=== PATIENT | male | born 1980 | race Two or more races ===

== ENCOUNTER 2018-08-19 22:07 | Emergency (ER) | payer MEDICAID ==
[~2018-08-19] VITALS: Ht 177.8 cm; Wt 99.0 kg
[~2018-08-19 22:07] MED LIST: AMOX-419 PO; PANT40TA4 PO
[2018-08-19 22:08] VITALS: BP 139/97
== END 2018-08-20 00:14 | disposition home or self-care (01) ==
LOC: ER 22:07
DX: Z48.01 Encounter for change or removal of surgical wound dressing (principal); Z90.49 Acquired absence of other specified parts of digestive tract; Z98.890 Other specified postprocedural states; Z79.2 Long term (current) use of antibiotics; Z79.899 Other long term (current) drug therapy
CPT/HCPCS: 99282

== ENCOUNTER 2018-09-28 17:24 | Emergency (ER) | payer MEDICAID ==
[~2018-09-28] VITALS: Ht 175.3 cm; Wt 100.0 kg
[~2018-09-28 17:24] MED LIST changes: -AMOX-419 PO
[2018-09-28 17:48] VITALS: BP 118/78
[2018-09-28] MEDS ORDERED: LIDO700A32 TD (19:53)
[2018-09-28] MEDS ORDERED: HYDR-4353 PO (19:53)
== END 2018-09-28 20:07 | disposition home or self-care (01) ==
LOC: ER 17:25
DX: R07.81 Pleurodynia (principal); R07.89 Other chest pain; Z90.49 Acquired absence of other specified parts of digestive tract; Z98.890 Other specified postprocedural states; Z79.899 Other long term (current) drug therapy; W13.2XXA Fall from, out of or through roof, initial encounter; Y93.89 Activity, other specified; Y92.89 Other specified places as the place of occurrence of the external cause; Y99.8 Other external cause status
CPT/HCPCS: 71046; 99283

== ENCOUNTER 2019-02-19 02:36 | Emergency (ER) | payer MEDICAID ==
[~2019-02-19] VITALS: Ht 177.8 cm; Wt 95.2 kg
[~2019-02-19 02:36] MED LIST changes: +LIDO700A32 TD
[2019-02-19 02:43] VITALS: BP 123/73
--- NOTE | 2019-02-19 02:53 | NUR ---
PT IN ROOM WITH FATHER EARLIER THIS SHIFT FOR A COUPLE OF HRS. HAD NO COMPLAINTS AT THAT TIME. UPON ASSESSMENT, STATES HE WENT HOME AND DRANK. ALSO ADMITS TO [facility] A COUPLE OF DAYS
[2019-02-19] MEDS ORDERED: dexamethasone 4mg tablet PO ONE (03:30)
[2019-02-19] MEDS ORDERED: PRED20TA PO (03:30)
== END 2019-02-19 03:44 | disposition home or self-care (01) ==
LOC: ER 02:37
DX: R13.10 Dysphagia, unspecified (principal); K14.6 Glossodynia; Z79.899 Other long term (current) drug therapy; Z90.49 Acquired absence of other specified parts of digestive tract; Z98.890 Other specified postprocedural states
CPT/HCPCS: 99283; J8540

== ENCOUNTER 2019-07-09 16:11 | Emergency (ER) | payer MEDICAID ==
[~2019-07-09] VITALS: Ht 177.8 cm; Wt 100.0 kg
[2019-07-09] MEDS ORDERED: L. R1CAP4 PO (18:11)
[2019-07-09] MEDS ORDERED: CLIN150C2 PO (18:11)
[2019-07-09] MEDS ORDERED: CHLO473M3 PO ×2 (18:11→18:17)
[2019-07-09 18:31] VITALS: BP 132/64
== END 2019-07-09 18:30 | disposition home or self-care (01) ==
LOC: ER 16:11
DX: K02.9 Dental caries, unspecified (principal); Z90.49 Acquired absence of other specified parts of digestive tract; Z79.2 Long term (current) use of antibiotics; Z79.899 Other long term (current) drug therapy; Z98.890 Other specified postprocedural states
CPT/HCPCS: 99283

== ENCOUNTER 2021-01-05 20:46 | Emergency (ER) | payer MEDICAID ==
[~2021-01-05] VITALS: Ht 175.3 cm; Wt 100.0 kg
[~2021-01-05 20:46] MED LIST changes: +CHLO473M3 PO; +L. R1CAP4 PO; -PANT40TA4 PO; +PANT40TA54 PO
[2021-01-05 20:58] VITALS: BP 164/111
== END 2021-01-06 01:13 | disposition left against medical advice (07) ==
LOC: ER 20:47
DX: F15.129 Other stimulant abuse with intoxication, unspecified (principal); Z53.21 Procedure and treatment not carried out due to patient leaving prior to being seen by health care provider

== ENCOUNTER 2022-06-01 05:26 | Emergency (ER) | payer MEDICAID ==
[~2022-06-01] VITALS: Ht 177.8 cm; Wt 99.8 kg
--- NOTE | 2022-06-01 05:43 | NUR ---
DR MCDANIEL AWARE OF PT. HE WILL PUT IN ORDERS.
[2022-06-01] MEDS ORDERED: LORazepam 1 MG tablet PO PRN (06:05)
[2022-06-01] MEDS ORDERED: normal saline 1000ML IV soln IVB ONE (06:05)
[2022-06-01 06:17] LABS: BASOPHILS # (AUTO) 0.1 X10'3 (0-0.2); BASOPHILS % (AUTO) 1.2 % (0-1); EOSINOPHILS # (AUTO) 0.1 X10'3 (0-0.9); EOSINOPHILS % (AUTO) 0.9 % (0-6); HEMATOCRIT 41.1 % (42.0-52.0); HEMOGLOBIN 14.4 g/dl (14.0-17.9); LYMPHOCYTES # (AUTO) 1.6 X10'3 (1.1-4.8); LYMPHOCYTES % (AUTO) 26.1 % (21-51); MEAN CORPUSCULAR HEMOGLOBIN 32.6 PG (27.0-31.0); MEAN CORPUSCULAR HGB CONC 35.1 g/dL (33.0-36.5); MEAN CORPUSCULAR VOLUME 92.9 FL (78-98); MEAN PLATELET VOLUME 7.4 FL (7.4-10.4); MONOCYTES # (AUTO) 0.9 X10'3 (0-0.9); MONOCYTES % (AUTO) 14.3 % (2-12); NEUTROPHILS # (AUTO) 3.5 X10'3 (1.8-7.7); NEUTROPHILS % (AUTO) 57.5 % (42-75); PLATELET COUNT 114 X10'3 (140-440); RED BLOOD COUNT 4.42 X10'6 (4.70-6.10); RED CELL DISTRIBUTION WIDTH 14.5 % (11.5-14.5)
[2022-06-01 06:31] LABS: ALANINE AMINOTRANSFERASE 103 U/L (12-78); ALBUMIN 4.4 G/DL (3.4-5.0); ALBUMIN/GLOBULIN RATIO 1.2 (1.1-1.5); ALKALINE PHOSPHATASE 92 IU/L (46-116); ANION GAP 19 (8-16); ASPARTATE AMINO TRANSFERASE 75 U/L (10-37); BILIRUBIN,TOTAL 0.8 MG/DL (0.1-1.0); BLOOD UREA NITROGEN 4 MG/DL (7-18); BUN/CREATININE RATIO 4.3 (5.4-32.0); CALCIUM 9.1 MG/DL (8.5-10.1); CHLORIDE 95 MMOL/L (99-107); CREATININE 0.92 MG/DL (0.60-1.10); GLUCOSE 129 MG/DL (70-104); MAGNESIUM 1.3 MG/DL (1.5-2.4); SODIUM 135 MMOL/L (135-145); TOTAL CARBON DIOXIDE 21.3 MMOL/L (24-32); eGFR 90 ML/MIN
[2022-06-01 06:55] LABS: POTASSIUM 2.6 MMOL/L (3.5-5.1)
[2022-06-01] MEDS ORDERED: magnesium 2GM in 50ml NS 50 ML IV ONE (07:10)
[2022-06-01] MEDS ORDERED: potassium CL 10mEq/100ml bag 100 ML IV ONE (07:10)
[2022-06-01] MEDS ORDERED: MIDAZolam 5mg/ml 2ml vial IV ONE (07:10)
[2022-06-01 07:54] LABS: ETHANOL < 0.010 GM/DL (0.0-0.010)
[2022-06-01] MEDS ORDERED: POTASSIUM BICARB 20meq eff tab 20 MEQ TABLET.EFF PO STA (08:23)
--- NOTE | 2022-06-01 08:25 | NUR ---
received verbal order for effer-k 40meq potassium po from [facility]. order placed as received
--- NOTE | 2022-06-01 08:33 | NUR ---
received verbal orders for mag-oxide 400mg tab and one more potassium 10meq iv bag. orders placed as received
[2022-06-01] MEDS ORDERED: potassium Cl 10 mEq/100mL bag IV ONE (08:35)
[2022-06-01] MEDS ORDERED: magnesium oxide 400mg tablet PO ONE (08:35)
[2022-06-01 08:52] LABS: URINE AMPHETAMINE SCREEN NEGATIVE (Neg); URINE BARBITUATE SCREEN NEGATIVE (Neg); URINE BENZODIAZEPINES SCREEN NEGATIVE (Neg); URINE CANNABINOID SCREEN NEGATIVE (Neg); URINE COCAINE SCREEN NEGATIVE (Neg); URINE METHADONE SCREEN NEGATIVE (Neg); URINE OPIATE SCREEN NEGATIVE (Neg); URINE PHENCYCLIDINE SCREEN NEGATIVE (Neg)
[2022-06-01] MEDS ORDERED: metoprolol tartrate 50mg tablet PO ONE (11:05)
[2022-06-01] MEDS ORDERED: chlordiazePOXIDE 25mg capsule PO ONE (11:05)
[2022-06-01] MEDS ORDERED: CHLO25CA10 PO (11:21)
--- NOTE | 2022-06-01 11:23 | NUR ---
relieving RN for break, pt is aware he needs to go directly to [place] for detox, he is aware medical clearance for rehab is expires in 24 hours, pt verbalized he will go to [place] upon discharge, has a ride there. Pt verbalized understanding no drinking or driving will on ativan and librium
[2022-06-01 11:33] VITALS: BP 143/105
== END 2022-06-01 11:51 | disposition home or self-care (01) ==
LOC: ER 05:26
DX: T43.611A Poisoning by caffeine, accidental (unintentional), initial encounter (principal); R00.0 Tachycardia, unspecified; R00.2 Palpitations; R11.10 Vomiting, unspecified; F10.239 Alcohol dependence with withdrawal, unspecified; E87.6 Hypokalemia; E83.42 Hypomagnesemia; Z90.89 Acquired absence of other organs; Z98.890 Other specified postprocedural states; Z72.89 Other problems related to lifestyle; Z79.899 Other long term (current) drug therapy; Y90.0 Blood alcohol level of less than 20 mg/100 ml
CPT/HCPCS: 36415; 71045; 80053; 80305; 80320; 83735; 85025; 93005; 96361; 96365; 96366; 96368; 96375; 99285; J2250; J3475; J3480; J7030

== ENCOUNTER 2023-09-17 15:17 | Emergency (ER) | payer MEDICAID ==
[~2023-09-17] VITALS: Ht 177.8 cm; Wt 108.3 kg
[~2023-09-17 15:17] MED LIST changes: +CHLO25CA10 PO
[2023-09-17 16:18] LABS: RED CELL DISTRIBUTION WIDTH 14.1 % (11.5-14.5)
[2023-09-17 16:20] LABS: HEMATOCRIT 47.8 % (42.0-52.0); HEMOGLOBIN 16.1 g/dl (14.0-17.9); MEAN CORPUSCULAR HEMOGLOBIN 31.1 PG (27.0-31.0); MEAN CORPUSCULAR HGB CONC 33.6 g/dL (33.0-36.5); MEAN CORPUSCULAR VOLUME 92.6 FL (78-98); PLATELET COUNT 234 X10'3 (140-440); RED BLOOD COUNT 5.16 X10'6 (4.70-6.10)
[2023-09-17 16:25] LABS: ALANINE AMINOTRANSFERASE 49 U/L (12-78); ALBUMIN 4.3 G/DL (3.4-5.0); ALBUMIN/GLOBULIN RATIO 1.1 (1.1-1.5); ALKALINE PHOSPHATASE 101 IU/L (46-116); ANION GAP 14 (8-16); ASPARTATE AMINO TRANSFERASE 41 U/L (10-37); BILIRUBIN,TOTAL 0.5 MG/DL (0.1-1.0); BLOOD UREA NITROGEN 5 MG/DL (7-18); BUN/CREATININE RATIO 7.6 (10.0-20.0); CALCIUM 8.5 MG/DL (8.5-10.1); CHLORIDE 100 MMOL/L (99-107); CREATININE 0.66 MG/DL (0.60-1.10); GLUCOSE 108 MG/DL (70-104); SODIUM 137 MMOL/L (135-145); TOTAL CARBON DIOXIDE 22.6 MMOL/L (24-32); TOTAL PROTEIN 8.1 G/DL (6.4-8.2); eCRCL 149 ML/MIN; eGFR > 90 ML/MIN
[2023-09-17 16:27] LABS: ETHANOL 278 MG/DL (<10); MAGNESIUM 2.2 MG/DL (1.5-2.4)
[2023-09-17 16:53] LABS: PLATELET ESTIMATE NORMAL; TOTAL CELLS COUNTED 100
[2023-09-17] MEDS ORDERED: phenobarbital sod 130mg/ml inj. IV ONE ×2 (21:15→21:55)
[2023-09-17] MEDS ORDERED: ESCI-8 PO (21:45)
[2023-09-17] MEDS ORDERED: normal saline 1000ml 1,000 ML IV ONE (21:55)
[2023-09-18] MEDS ORDERED: normal saline 1000ml 1,000 ML IV ONE (00:45)
[2023-09-18] MEDS ORDERED: thiamine 100mg/ml 2ml inj. IV ONE (00:45)
[2023-09-18] MEDS ORDERED: midazolam 1 mg/ML 2ml injection IV ONE (04:15)
[2023-09-18] MEDS ORDERED: chlordiazePOXIDE 25mg capsule PO ONE (04:15)
[2023-09-18] MEDS ORDERED: CHLO25CA10 PO (04:20)
[2023-09-18 04:57] VITALS: BP 135/80; PULSE 95; RESP 16; TEMP 98.1; O2SAT 95
== END 2023-09-18 04:59 | disposition home or self-care (01) ==
LOC: ER 15:18
DX: F10.129 Alcohol abuse with intoxication, unspecified (principal); Z90.49 Acquired absence of other specified parts of digestive tract; Z79.899 Other long term (current) drug therapy; Y90.9 Presence of alcohol in blood, level not specified
CPT/HCPCS: 36415; 80053; 80320; 83735; 85007; 85025; 96361; 96374; 96375; 96376; 99285; J2250; J2560; J3411; J7030

== ENCOUNTER 2023-11-11 20:13 | Emergency (ER) | payer MEDICAID ==
[~2023-11-11] VITALS: Ht 172.7 cm; Wt 90.0 kg
[~2023-11-11 20:13] MED LIST changes: -CHLO473M3 PO; +ESCI-8 PO; -L. R1CAP4 PO; -LIDO700A32 TD; -PANT40TA54 PO
[2023-11-11 20:17] VITALS: TEMP 98.4
[2023-11-11 21:03] LABS: BASOPHILS # (AUTO) 0.1 X10'3 (0-0.2); EOSINOPHILS # (AUTO) 0.1 X10'3 (0-0.9); HEMATOCRIT 46.8 % (42.0-52.0); HEMOGLOBIN 16.1 g/dl (14.0-17.9); LYMPHOCYTES # (AUTO) 1.4 X10'3 (1.1-4.8); LYMPHOCYTES % (AUTO) 22.8 % (21-51); MEAN CORPUSCULAR HEMOGLOBIN 31.7 PG (27.0-31.0); MEAN CORPUSCULAR HGB CONC 34.4 g/dL (33.0-36.5); MEAN CORPUSCULAR VOLUME 92.2 FL (78-98); MEAN PLATELET VOLUME 7.3 FL (7.4-10.4); MONOCYTES # (AUTO) 0.3 X10'3 (0-0.9); NEUTROPHILS # (AUTO) 4.3 X10'3 (1.8-7.7); NEUTROPHILS % (AUTO) 68.2 % (42-75); PLATELET COUNT 114 X10'3 (140-440); RED BLOOD COUNT 5.08 X10'6 (4.70-6.10); WHITE BLOOD COUNT 6.3 X10'3 (4.5-11.0)
[2023-11-11] MEDS: LORazepam 2 mg/ml vial IV ONE (21:03)
[2023-11-11] MEDS: diphenhydrAMINE 50 mg/ml inj IV ONE (21:30)
[2023-11-11 21:31] LABS: URINE AMPHETAMINE SCREEN NEGATIVE (Neg); URINE BARBITUATE SCREEN NEGATIVE (Neg); URINE BENZODIAZEPINES SCREEN NEGATIVE (Neg); URINE CANNABINOID SCREEN NEGATIVE (Neg); URINE COCAINE SCREEN NEGATIVE (Neg); URINE METHADONE SCREEN NEGATIVE (Neg); URINE OPIATE SCREEN NEGATIVE (Neg); URINE PHENCYCLIDINE SCREEN NEGATIVE (Neg)
[2023-11-11] MEDS: dicyclomine 10mg/ml 2ml ampule IM ONE (21:32)
[2023-11-11 21:35] LABS: ALBUMIN 4.3 G/DL (3.4-5.0); ANION GAP 17 (8-16); BLOOD UREA NITROGEN 9 MG/DL (7-18); BUN/CREATININE RATIO 10.5 (10.0-20.0); CALCIUM 8.5 MG/DL (8.5-10.1); CHLORIDE 96 MMOL/L (99-107); CREATININE 0.86 MG/DL (0.60-1.10); GLUCOSE 202 MG/DL (70-104); POTASSIUM 3.6 MMOL/L (3.5-5.1); SODIUM 136 MMOL/L (135-145); TOTAL CARBON DIOXIDE 22.6 MMOL/L (24-32); eCRCL 107 ML/MIN; eGFR > 90 ML/MIN
[2023-11-11 21:43] LABS: ETHANOL 421 MG/DL (<10)
[2023-11-11] MEDS: metoclopramide 5 mg/ml inj IV ONE (22:03)
[2023-11-11] MEDS: normal saline 1000ML IV soln IVB ONE (23:01)
[2023-11-11 23:29] VITALS: BP 128/83; PULSE 125; RESP 16; O2SAT 96
[2023-11-11] MEDS ORDERED: CHLO25CA10 PO (23:52)
== END 2023-11-12 01:31 | disposition home or self-care (01) ==
LOC: ER 20:16
DX: F10.129 Alcohol abuse with intoxication, unspecified (principal); F10.10 Alcohol abuse, uncomplicated; Y90.9 Presence of alcohol in blood, level not specified; Z90.49 Acquired absence of other specified parts of digestive tract; Z98.890 Other specified postprocedural states; Z79.899 Other long term (current) drug therapy
CPT/HCPCS: 36415; 80048; 80305; 80320; 84484; 85025; 93005; 96372; 96374; 96375; 99285; J0500; J1200; J2060; J2765; J7030

== ENCOUNTER 2025-01-12 10:28 | Emergency (ER) | payer MEDICAID ==
[~2025-01-12] VITALS: Ht 177.8 cm; Wt 108.3 kg
[2025-01-12 10:47] VITALS: BP 133/102; PULSE 76; RESP 16; TEMP 97.4; O2SAT 97
== END 2025-01-12 12:20 | disposition home or self-care (01) ==
LOC: ER 10:28
DX: S62.640A Nondisplaced fracture of proximal phalanx of right index finger, initial encounter for closed fracture (principal); F10.90 Alcohol use, unspecified, uncomplicated; Z90.49 Acquired absence of other specified parts of digestive tract; Z98.890 Other specified postprocedural states; W19.XXXA Unspecified fall, initial encounter; Y93.89 Activity, other specified; Y92.89 Other specified places as the place of occurrence of the external cause; Y99.8 Other external cause status; Y90.9 Presence of alcohol in blood, level not specified
CPT/HCPCS: 29130; 73130; 99284; A6449

== ENCOUNTER 2025-04-26 12:44 | Emergency (ER) | payer MEDICAID ==
[~2025-04-26] VITALS: Ht 175.3 cm; Wt 104.5 kg
[2025-04-26] MEDS ORDERED: GABA-530 PO (13:10)
[2025-04-26] MEDS ORDERED: ACET-75 (13:10)
[2025-04-26] MEDS ORDERED: PANT20TA18 PO (13:10)
[2025-04-26] MEDS: HYDROcodone/acetaminophen 10/325mg tab PO ONE (13:55)
[2025-04-26] MEDS ORDERED: HYDR-3972 PO (14:25)
--- NOTE | 2025-04-26 14:27 | Physician Documentation ---
HPI ~ General Chief Complaint: Medication Request Stated Complaint: MED REQUEST Time Seen by MD: 12:57 Primary Medical Doctor: [facility] Source: patient Mode of Arrival: POV Exam Limitations: no limitations History of Present Illness HPI Comments 45-YEAR-OLD MALE WHO IS HERE REQUESTING PAIN MEDICATION STATING THAT THE [place]CO 5/320 FIVES ARE NOT HELPING HIS PAIN. PATIENT IS TWO DAYS POSTOP AFTER HAVING SURGERY OUT OF THE AREA ON HIS LEFT ANKLE. NO FEVER, CHILLS, CALF PAIN. Medication Reconciliation Allergies: Coded Allergies: No Known Allergies (Unverified , 04/27/23) Scheduled Gabapentin (Gabapentin), 1 CAP PO TID, (Reported) Pantoprazole Sodium (Protonix), 1 TAB PO DAILY, (Reported) Miscellaneous Medications Acetaminophen (Acetaminophen), (Reported) Discontinued Medications Chlordiazepoxide Hcl (Librium), 2 CAP PO Q2H PRN PRN for withdrawl symtpoms Discontinued Reason: patient no longer taking Chlordiazepoxide Hcl (Librium), 1 CAP PO Q2H PRN PRN for anxiety Discontinued Reason: patient no longer taking Escitalopram Oxalate (Escitalopram Oxalate), 1 TAB PO DAILY, (Reported) Discontinued Reason: patient no longer taking Past Medical History Past Medical History: No Pertinent History, Hernia Past Surgical History: appendectomy, orthopedic surgeries Other Past Surgical History: hernia repair Alcohol Use: Alcoholic Drug Use: none Lives with: Family Lives In: Home Occupation: employed Review of Systems All Other Systems at this time: Reviewed and Negative Physical Exam Physical Exam Vital Signs: Temperature: 98.4, Source: Oral, Heart Rate: 121, Respiratory Rate: 24, BP: 127/82, Pulse Oximetry: 94, Weight: 104.550 Oxygen Flow Rate: 0 Physical Exam General Appearance: Alert, WD/WN. NAD. HEENT: NCAT, PERRL, EOMI. Neck: Supple, trachea midline. Cardiovascular: RRR. No m/r/g. Lungs: CTAB. Breathing unlabored Extremities: Wearing left walking boot. Wearing right knee brace. Skin: Warm/dry, normal color Neurological: Alert and oriented x4, normal gait. Psychiatric: Affect congruent with mood. Progress Results/Orders Results/Orders Completed Orders - CYNTHIA DUNN Hydrocodone/Apap 10/325 ([place] 10/325mg (04/26/25 13:40) Medications Received in ER Medications (Trade) Dose Ordered Sig/Eri Route PRN Reason Start Time Stop Time Status Last Admin Dose Admin (Kodak 10/325mg tab) 1 tab ONCE ONCE PO 04/26/25 13:40 04/26/25 13:41 DC 04/26/25 13:55 1 TAB Vital Signs 04/26/25 04/26/25 04/26/25 04/26/25 12:45 13:03 13:55 13:56 Temp 99.1 98.4 Pulse 134 121 Resp 16 24 20 24 B/P (MAP) 187/69 127/82 (97) Pulse Ox 99 94 O2 Flow Rate 0 0 Medical Decision Making Differential Dx:Considerations: Include: Adverse circumstances, Economic, Psychosocial, Medical services unavail., Medication refill, Medication non- compliance, Other Departure Time of Disposition: 14:23 Disposition: 01 HOME / SELF CARE / HOMELESS Impression: Primary Impression: Post-op pain Condition: Stable Discharge Instructions: Medicine Refill at the Emergency Department Additional Instructions: YOU GOT 30TABS OF OXYCODONE FILLED YESTERDAY SO I WAS UNABLE TO FILL ANY MORE PAIN MEDICATIONS FOR YOU. F/U WITH ORTHO RECOMMENDED BY YOUR SURGEON. Referrals: NO PRIMARY CARE PROVIDER (PCP) Education Educated: Patient Educated regarding: diagnosis, treatment, need for follow up Signature Scribe Signature: X Attestation: CYNTHIA NGO Apr 26, 2025 14:26
[2025-04-26 14:41] VITALS: BP 129/85; PULSE 111; RESP 17; TEMP 98.8; O2SAT 98
== END 2025-04-26 15:04 | disposition home or self-care (01) ==
LOC: ER 12:45
DX: G89.18 Other acute postprocedural pain (principal); Z90.49 Acquired absence of other specified parts of digestive tract; Z98.890 Other specified postprocedural states
CPT/HCPCS: 99283